=== PATIENT | male | born 1940 | race Caucasian/White ===

== ENCOUNTER 2018-03-26 21:38 | Emergency (ER) | payer OTHER, MEDICARE ==
[~2018-03-26] VITALS: Ht 170.2 cm; Wt 81.6 kg
[~2018-03-26 21:38] MED LIST: PERCOCET 5-3251 EACH PO; TYLENOL EXTRA500 M2 PO
[2018-03-26 22:10] LABS: ABSOLUTE BASOPHIL COUNT 0.1 /CUMM (0.0-0.2); ABSOLUTE EOSINOPHIL COUNT 0.3 /CUMM (0.0-0.7); ABSOLUTE GRANULOCYTE CT 4.4 /CUMM (1.4-6.5); ABSOLUTE MONOCYTE COUNT 1.1 /CUMM (0.10-0.60); EOSINOPHIL % 3.6 % (0-5); GRANULOCYTE % 49.3 % (42.2-75.2); HEMATOCRIT 38.5 % (42-52); MEAN CORPUSCULAR HGB 28.3 PG (27.0-31.0); MEAN CORPUSCULAR HGB CONC 32.8 G/DL (33.0-37.0); MEAN CORPUSCULAR VOLUME 86.1 FL (80.0-94.0); PLATELET COUNT 292 /CUMM (130-400); RBC DISTRIBUTION WIDTH 14.2 % (11.5-14.5); RED BLOOD CELL CT 4.47 /CUMM (4.70-6.10); WHITE BLOOD CELL COUNT 8.9 /CUMM (4.8-10.8)
--- NOTE | 2018-03-26 22:15 | ED DYSPNEA/ASTHMA COMPLAINT ---
History of Present Illness General Chief Complaint: Dyspnea (COPD, CHF, Other) Stated Complaint: DIFF BREATHING PER PT Source: patient, family Exam Limitations: no limitations Vital Signs & Intake/Output Vital Signs & Intake/Output Vital Signs Date Time Temp Pulse Resp B/P B/P Pulse O2 O2 Flow FiO2 Mean Ox Delivery Rate 03/26 2343 97.8 80 18 138/78 95 Room Air 03/26 2149 98.5 93 18 145/86 95 Room Air ED Intake and Output 03/27 0000 03/26 1200 Intake Total Output Total Balance Patient 180 lb Weight Weight Reported by Patient Measurement Method Allergies Coded Allergies: moxifloxacin (UNKNOWN 12/12/15) Uncoded Allergies: LOBSTER (UNKNOWN 03/26/18) Reconcile Medications Acetaminophen (Tylenol Extra Strength) 500 MG TABLET 1 TAB PO Q4-6 PRN PRN pain control available over the counter. take as directed as needed for pain control. Brompheniramine/Pseudoephed/Dm (Bromfed Dm Cough Syrup) 2 MG-30 MG-10 MG/5 ML SYRUP 5-10 ML PO Q4-6 PRN PRN cough Sodium Polystyrene Sulfonate 15 GRAM/60 ML ORAL.SUSP 30 GM PO ONCE hyperkalemia Triage Note: PT TO ER C/C INCREASED SOB AND COUGH "SINCE FEBRUARY". PT STATES HE HAS BEEN FOLLOWED BY DR. MERCER FOR A "BRONCHIAL PROBLEM", TAKING AMOXICILLIN FOR SAME. DRY COUGH NOTED. DENIES C/P. STATES IS HAVING DIFFICULTY SLEEPING X 4 DAYS. Triage Nurses Notes Reviewed? yes Onset: Gradual Duration: week(s): Timing: recent history Severity: moderate HPI: 77 oral male presents emergency department complaining of persistent cough and exertional dyspnea for the past several weeks. Patient states that he has had breathing issues which she is been seeing his primary care doctor for a long time. Patient has waxing and waning symptoms, his primary care doctor has been treating him with amoxicillin, he has had improvement in the past however symptoms have never totally cleared. Patient states he has a dry cough which is worse with laying flat and often keeps him up at night. Patient was prescribed amoxicillin 2 days ago for his cough. He states that this time the medication has not been helping at all. Patient states that he had a CAT scan with contrast dye of his chest about a week ago which showed lymphadenopathy. Patient has an appointment with IR for lymph node biopsy in two days. Patient denies chest pain, fevers, chills. (Libia Coughlin) Past History Travel History Traveled to [place] past 21 day No Medical History Any Pertinent Medical History? 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 No (Libia Coughlin) Review of Systems Review of Systems Constitutional: Reports: no symptoms. EENTM: Reports: no symptoms. Respiratory: Reports: see HPI. Cardiovascular: Reports: no symptoms. GI: Reports: no symptoms. Genitourinary: Reports: no symptoms. Musculoskeletal: Reports: no symptoms. Skin: Reports: no symptoms. Neurological/Psychological: Reports: no symptoms. Hematologic/Endocrine: Reports: no symptoms. Immunologic/Allergic: Reports: no symptoms. All Other Systems: Reviewed and Negative (Libia Coughlin) Physical Exam Physical Exam General Appearance: well developed/nourished, no apparent distress, alert, awake Head: atraumatic, normal appearance Eyes: Bilateral: normal appearance. Ears, Nose, Throat: hearing grossly normal Neck: normal inspection, supple, full range of motion, lymphadenopathy (R), lymphadenopathy (L) Respiratory: normal breath sounds, chest non-tender, no respiratory distress, lungs clear Cardiovascular: regular rate/rhythm Gastrointestinal: normal bowel sounds, soft, non-tender, no organomegaly Extremities: normal inspection, normal range of motion Neurologic/Psych: awake, alert, oriented x 3 Skin: intact, normal color, warm/dry Core Measures ACS in differential dx? No CVA/TIA Diagnosis No Sepsis Present: No Sepsis Focused Exam Completed? No (Libia Coughlin) Progress Differential Diagnosis: asthma, AMI, bronchitis, costochondritis, CHF, COPD, pericarditis, pulmonary embolism, pneumonia, unstable angina Plan of Care: Orders Procedure Date/time Status TROPONIN LEVEL 03/26 2149 Complete COMPREHENSIVE METABOLIC PANEL 03/26 2149 Complete CBC WITHOUT DIFFERENTIAL 03/26 2149 Complete EKG 03/26 2141 Active Laboratory Tests 03/26/18 2205: Anion Gap 10, Estimated GFR > 60, BUN/Creatinine Ratio 15.0, Glucose 91, Calcium 10.2, Total Bilirubin 0.3, AST 19, ALT 26, Alkaline Phosphatase 76, Troponin I < 0.01, Total Protein 7.2, Albumin 4.1, Globulin 3.1, Albumin/Globulin Ratio 1.3, CBC w Diff NO MAN DIFF REQ, RBC 4.47 L, MCV 86.1, MCH 28.3, MCHC 32.8 L, RDW 14.2, MPV 6.0 L, Gran % 49.3, Lymphocytes % 34.1, Monocytes % 12.0 H, Eosinophils % 3.6, Basophils % 1.0, Absolute Granulocytes 4.4, Absolute Lymphocytes 3.0, Absolute Monocytes 1.1 H, Absolute Eosinophils 0.3, Absolute Basophils 0.1 Patient declined chest x-ray given his recent CT scan of his chest last week. Symptoms are also chronic and he has had several chest x-rays in the past. EKG is in sinus rhythm without acute ischemic changes. Troponins and is negative. Labs are significant for mild hyperkalemia. No EKG changes related to hyperkalemia. Findings discussed with Dr. Bills. It was recommended the patient take Kayexalate here in the emergency department tonight however he declines, he states he wishes to go home and have a good night sleep. Patient states he will take Kayexalate at home tomorrow morning. Prescribe medication to help with his cough. The patient is in no acute distress, vital signs are stable, lung sounds are clear bilaterally. Patient has no chest pain. Suspicion for acute cardiac pathology based on this patient's presentation. The patient agrees with the plan of care. Initial ED EKG: sinus rhythm @93bpm, nonspecific ST changes (Anjana FELTON,Libia Martins) Departure Departure Disposition: HOME OR SELF CARE Condition: Stable Clinical Impression Primary Impression: Cough Secondary Impressions: Dyspnea Qualifiers: Dyspnea type: dyspnea on exertion Qualified Code: R06.09 - Other forms of dyspnea Hyperkalemia Referrals: Marci GAITAN,Matthias Hall (PCP/Family) Additional Instructions: Take Kayexalate for your hypertension. Your potassium level today was 5.5. Have your primary care doctor recheck your potassium level in about a week. You were given a list of foods that contain potassium to limit in your diet. Try Bromfed to help with her cough. Return with worsening symptoms or concerns. Please note that there might be incidental findings in your evaluation that are unrelated to the current emergency department visit. Please notify your primary care doctor about this emergency department visit in order to obtain and review all of the testing performed so that these incidental findings can be monitored as needed. If you had an x-ray performed, please understand that some fractures may not be seen on the initial set of x-rays. If your symptoms persist you might need a repeat set of x-rays to check for such a fracture. If you had a laceration evaluated, please understand that foreign bodies such as glass or wood may not be visible to the naked eye or on plain x-rays. If the wound becomes red, swollen, increasingly more painful or if there is any drainage from the wound, please have it reevaluated by a physician for the possibility of a retained foreign body. If you're unable to follow up as outlined in the discharge instructions please return to the emergency department. Thank you for choosing the [facility] Emergency Department for your care. It was a pleasure to serve you today. Departure Forms: Customer Survey General Discharge Information Prescriptions: Current Visit Scripts Sodium Polystyrene Sulfonate 30 GM PO ONCE #30 GM Brompheniramine/Pseudoephed/Dm (Bromfed Dm Cough Syrup) 5-10 ML PO Q4-6 PRN PRN cough #120 ML (Anjana FELTON,Libia Martins) PA/DIRECTOR REGULATORY COMPLIANCE Co-Sign Statement Statement: ED Attending supervision documentation- [x] I have reviewed the ED Record and agree with the PA's/DIRECTOR REGULATORY COMPLIANCE's documentation. (Negar GAITAN,Louie Oliver) Critical Care Note Critical Care Note Critical Care Time: non-applicable (Libia Coughlin)
[2018-03-26] MEDS ORDERED: SODIUM POL15 GM/601 PO (23:38)
[2018-03-26] MEDS ORDERED: BROMFED DM COU118 M1 PO (23:39)
[2018-03-26 23:43] VITALS: BP 138/78
== END 2018-03-26 23:48 ==
LOC: ERH 21:38
PROVIDERS: Physician Assistant
DX: R05 Cough (principal); R06.00 Dyspnea, unspecified; E87.5 Hyperkalemia
CPT/HCPCS: 93005; 93010

== ENCOUNTER 2018-05-25 22:52 | Inpatient (IN) | payer OTHER, MEDICARE ==
[~2018-05-25] VITALS: Ht 167.6 cm; Wt 78.1 kg
[~2018-05-25 22:52] MED LIST changes: +BROMFED DM COU118 M1 PO; +SODIUM POL15 GM/601 PO
[2018-05-25 23:49] LABS: ABSOLUTE BASOPHIL COUNT 0.1 /CUMM (0.0-0.2); ABSOLUTE EOSINOPHIL COUNT 0.1 /CUMM (0.0-0.7); ABSOLUTE GRANULOCYTE CT 5.7 /CUMM (1.4-6.5); ABSOLUTE LYMPH COUNT 1.6 /CUMM (1.2-3.4); EOSINOPHIL % 1.5 % (0-5); MEAN CORPUSCULAR HGB 27.5 PG (27.0-31.0); MEAN CORPUSCULAR HGB CONC 33.6 G/DL (33.0-37.0); MEAN CORPUSCULAR VOLUME 81.7 FL (80.0-94.0); MEAN PLATELET VOLUME 6.8 FL (7.4-10.4); PLATELET COUNT 237 /CUMM (130-400); RBC DISTRIBUTION WIDTH 15.9 % (11.5-14.5); RED BLOOD CELL CT 5.27 /CUMM (4.70-6.10); WHITE BLOOD CELL COUNT 8.5 /CUMM (4.8-10.8)
--- NOTE | 2018-05-26 00:16 | RADIOLOGY REPORT ---
EXAMINATION: XR PORTABLE CHEST CLINICAL INFORMATION: History of metastatic lung cancer, shortness of breath COMPARISON: 04/04/2018 TECHNIQUE: Portable frontal view of the chest was obtained. FINDINGS: Right IJ port catheter tip lies in the region of the distal SVC. Lung volumes are symmetric. No acute consolidation is identified to suggest pneumonia. Masslike density in the right upper lobe identified on recent PET/CT is not as well delineated radiographically. Linear atelectasis is present at the left lung base. No evidence of pneumothorax, significant pleural effusion, or overt pulmonary edema. The cardiomediastinal contour is unremarkable. No acute osseous findings are seen. IMPRESSION: No acute consolidation identified to suggest pneumonia. Right upper lobe mass on prior PET/CT is not as well delineated radiographically.
--- NOTE | 2018-05-26 00:30 | ED DYSPNEA/ASTHMA COMPLAINT ---
History of Present Illness General Chief Complaint: Dyspnea (COPD, CHF, Other) Stated Complaint: BIBA SOB Source: patient, old records Exam Limitations: no limitations Vital Signs & Intake/Output Vital Signs & Intake/Output Vital Signs Date Time Temp Pulse Resp B/P B/P Pulse O2 O2 Flow FiO2 Mean Ox Delivery Rate 05/26 0114 97.8 94 18 134/63 97 Nasal 3.0L Cannula 05/25 2303 97.6 101 20 138/78 96 Allergies Coded Allergies: moxifloxacin (UNKNOWN 12/12/15) shellfish derived (ANAPHYLAXIS 05/26/18) Uncoded Allergies: LOBSTER (UNKNOWN 03/26/18) Reconcile Medications Acetaminophen (Tylenol Extra Strength) 500 MG TABLET 1 TAB PO Q4-6 PRN PRN pain control available over the counter. take as directed as needed for pain control. Brompheniramine/Pseudoephed/Dm (Bromfed Dm Cough Syrup) 2 MG-30 MG-10 MG/5 ML SYRUP 5-10 ML PO Q4-6 PRN PRN cough Sodium Polystyrene Sulfonate 15 GRAM/60 ML ORAL.SUSP 30 GM PO ONCE hyperkalemia Triage Note: PT BIBA FROM HOME C/O SOB. PT WAS RECENTLY DIAGNOSED WITH STAGE 4 LUNG CA. PT HAD FIRST CHEMO TX YESTERDAY. PT C/O SOB THIS EVENING. PER EMS RA SPO2 WAS 94%. PT RECEIVED 2 DUO NEBS FROM EMS. RA SPO2 IMPROVED TO 98%. PT DENIES PAIN/DISCOMFORT. Triage Nurses Notes Reviewed? yes Onset: Last week Duration: week(s):, constant, continues in ED, getting worse Timing: recent history Severity: severe Activities at Onset: activity Prior Episodes/Possible Cause: occasional episodes Modifying Factors: Improves With: rest. Worsens With: movement. Associated Symptoms: cough, wheezing, weakness HPI: Several weeks prior to admission patient completed whole brain radiation for metastatic lung cancer to neck and brain. 2 weeks prior to admission he is had progressive increase in shortness of breath dyspnea on exertion limiting his activity to 3-4 steps requiring rest. He has started immunotherapy. He denies fever chills nausea vomiting diarrhea chest pain headache dysuria rash bleeding. Past History Travel History Traveled to [place] past 21 day No Medical History Any Pertinent Medical History? 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 No Review of Systems Review of Systems Constitutional: Reports: see HPI, weakness. EENTM: Reports: no symptoms. Respiratory: Reports: see HPI, cough, short of breath, wheezing. Denies: sputum production. Cardiovascular: Reports: no symptoms. GI: Reports: no symptoms. Genitourinary: Reports: no symptoms. Musculoskeletal: Reports: no symptoms. Skin: Reports: no symptoms. Neurological/Psychological: Reports: no symptoms. Hematologic/Endocrine: Reports: no symptoms. Immunologic/Allergic: Reports: no symptoms. All Other Systems: Reviewed and Negative Physical Exam Physical Exam General Appearance: well developed/nourished, alert, awake, moderate distress, severe distress Head: atraumatic, normal appearance Eyes: Bilateral: normal appearance, PERRL, EOMI. Ears, Nose, Throat: normal pharynx, normal ENT inspection, hearing grossly normal Neck: normal inspection, supple, full range of motion, no midline tenderness Respiratory: chest non-tender, decreased breath sounds, wheezing, respiratory distress Cardiovascular: regular rate/rhythm, normal peripheral pulses, tachycardia, norml femoral pulses equa Peripheral Pulses: 4+ carotid (R), 4+ carotid (L) Gastrointestinal: normal bowel sounds, soft, non-tender, no organomegaly Extremities: normal inspection, normal capillary refill, normal range of motion, no edema Neurologic/Psych: no motor/sensory deficits, awake, alert, oriented x 3, normal mood/affect, 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 No CVA/TIA Diagnosis No Sepsis Present: No Sepsis Focused Exam Completed? No Progress Differential Diagnosis: asthma, bronchitis, CHF, COPD, pneumonia Plan of Care: Orders Procedure Date/time Status Regular Diet 05/27 B Active OXYGEN SETUP (GEN) 05/26 49 Active Saline Lock 05/26 0049 Active Admit to inpatient 05/26 49 Active Vital Signs 05/26 49 Active Activity/Ambulation 05/26 49 Active Code Status 05/26 49 Active TROPONIN LEVEL 05/25 2318 Complete MAGNESIUM 05/25 2318 Complete COMPREHENSIVE METABOLIC PANEL 05/25 2318 Complete CBC WITHOUT DIFFERENTIAL 05/25 2318 Complete B-TYPE NATRIURETIC PEP (BNP) 05/25 2318 Complete EKG 05/25 2254 Active Laboratory Tests 05/25/18 2336: Anion Gap 12, Estimated GFR > 60, BUN/Creatinine Ratio 20.0, Glucose 101 H, Calcium 9.3, Magnesium 2.0, Total Bilirubin 0.6, AST 24, ALT 33, Alkaline Phosphatase 110, Troponin I < 0.01, Tra-C-Mlbwyplsiai Pept 76.5, Total Protein 6.5, Albumin 3.7, Globulin 2.8, Albumin/Globulin Ratio 1.3, CBC w Diff NO MAN DIFF REQ, RBC 5.27, MCV 81.7, MCH 27.5, MCHC 33.6, RDW 15.9 H, MPV 6.8 L, Gran % 67.0, Lymphocytes % 18.4 L, Monocytes % 12.1 H, Eosinophils % 1.5, Basophils % 1.0, Absolute Granulocytes 5.7, Absolute Lymphocytes 1.6, Absolute Monocytes 1.0 H, Absolute Eosinophils 0.1, Absolute Basophils 0.1 Diagnostic Imaging: Viewed by Me: Radiology Read. Discussed w/RAD: Radiology Read. CXR Impression: No acute consolidation identified to suggest pneumonia. Right upper lobe mass on prior PET/CT is not as well delineated radiographically. Initial ED EKG: normal axis, normal intervals, normal p-waves, normal QRS complex, rhythm (sinus tachycardia), no ST T wave changes Rhythm Strip: sinus tachycardia Departure Departure Time of Disposition: 208 Disposition: STILL A PATIENT Condition: Fair Clinical Impression Primary Impression: Dyspnea and respiratory abnormalities Secondary Impressions: Metastatic primary lung cancer Referrals: Marci GAITAN,Matthias Hall (PCP/Family) Departure Forms: Customer Survey General Discharge Information Admission Note Spoke With: Mauro Hart MD Documentation of Exam: Documentation of any treatments & extenuating circumstances including Concerns Regarding Discharge (functional status, medication knowledge or non-compliance, living conditions, etc.) that warrant an admission rather than observation: Supplemental oxygen beta agonist nebs oncology evaluation pulmonary evaluation medication adjustment physical therapy continuing care discharge planning Critical Care Note Critical Care Note Critical Care Time: non-applicable
--- NOTE | 2018-05-26 02:49 | History & Physical ---
Pepe Petersen MD 05/26/18 0249: General Information and HPI MD Statement: I have seen and personally examined MELVIN ACEVES and documented this H &P. The patient is a 77 year old M who presented with a patient stated chief complaint of [difficulty breathing]. 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 Patient reports that he recently completed 10 days of whole brain radiation therapy on May 05. States that after the radiation he started having symptoms which included shortness of breath, pain with swallowing, and anorexia. Patient reports that the shortness of breath has been worsening over the past 3 weeks and he is now having shortness of breath at rest and with minimal exertion. Reports that he cannot take more than 4 steps without getting short of breath. Patient reports a significant cough which is nonproductive. States that he can minimize the coughing if he lies on his left side. Reports that the cough is chronic and is what initially precipitated evaluation which led to his diagnosis of metastatic lung cancer. Patient denies any fever, chills, chest pain, palpitations, lightheadedness, dizziness, abdominal pain, nausea/vomiting, dysuria/hematuria. Patient reports that he is seen by Dr. Sandoval for radiation therapy management and Dr. Sarmiento for medical management. States that he received his first infusion of Keytruda on Tuesday, May 24. Patient reports that he is not currently on any home medications except for an albuterol inhaler which he states does not help improve his breathing as he is unable to take a deep breath. Patient was previously on Bromfed cough syrup however reports that while his cough subsided he had some urinary retention and stopped taking it. Allergies/Medications Allergies: Coded Allergies: moxifloxacin (UNKNOWN 12/12/15) shellfish derived (ANAPHYLAXIS 05/26/18) Uncoded Allergies: LOBSTER (UNKNOWN 03/26/18) Home Med list Acetaminophen (Tylenol Extra Strength) 500 MG TABLET 1 TAB PO Q4-6 PRN PRN pain control available over the counter. take as directed as needed for pain control. 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 Denies: chills, diaphoresis, fever, malaise. EENTM: Reports: visual changes. Cardiovascular: Reports: no symptoms. Respiratory: Reports: cough, short of breath. Denies: hemoptysis, orthopnea, sputum production. GI: Reports: no symptoms. Genitourinary: Reports: no symptoms. Musculoskeletal: Reports: no symptoms. Skin: Reports: no symptoms. Neurological/Psychological: Reports: anxiety. Hematologic/Endocrine: Reports: no symptoms. Immunologic/Allergic: Reports: see HPI. Exam & Diagnostic Data Last 24 Hrs of Vital Signs/I&O Vital Signs Date Time Temp Pulse Resp B/P B/P Pulse O2 O2 Flow FiO2 Mean Ox Delivery Rate 05/26 0114 97.8 94 18 134/63 97 Nasal 3.0L Cannula 05/25 2303 97.6 101 20 138/78 96 Physical Exam General Appearance Alert, Oriented X3, Cooperative, Mild Distress Skin No Rashes Skin Temp/Moisture Exam: Warm/Dry HEENT Atraumatic, PERRLA, EOMI, Mucous Membr. moist/pink Lymphatic large hard supraclavicular right sided lymph node palpable, right axillary LN palpable Cardiovascular Regular Rate, Normal S1, Normal S2 Lungs decreased breath sounds bilaterally with diffuse crackles Abdomen Normal Bowel Sounds, Soft, No Tenderness Neurological Normal Speech, Strength at 5/5 X4 Ext, Normal Tone, Sensation Intact, Cranial Nerves 3-12 NL Extremities No Clubbing, No Cyanosis, No Edema, Normal Pulses, No Tenderness/ Swelling Last 24 Hrs of Labs/Joo: Laboratory Tests 05/25/18 2336: Anion Gap 12, Estimated GFR > 60, BUN/Creatinine Ratio 20.0, Glucose 101 H, Calcium 9.3, Magnesium 2.0, Total Bilirubin 0.6, AST 24, ALT 33, Alkaline Phosphatase 110, Troponin I < 0.01, Llw-I-H[place]z Pept 76.5, Total Protein 6.5, Albumin 3.7, Globulin 2.8, Albumin/Globulin Ratio 1.3, CBC w Diff NO MAN DIFF REQ, RBC 5.27, MCV 81.7, MCH 27.5, MCHC 33.6, RDW 15.9 H, MPV 6.8 L, Gran % 67.0, Lymphocytes % 18.4 L, Monocytes % 12.1 H, Eosinophils % 1.5, Basophils % 1.0, Absolute Granulocytes 5.7, Absolute Lymphocytes 1.6, Absolute Monocytes 1.0 H, Absolute Eosinophils 0.1, Absolute Basophils 0.1 Diagnostic Data EKG Results Sinus Tachycardia with no signficant STT wave changes CXR Results No acute consolidation identified to suggest pneumonia. Right upper lobe mass on prior PET/CT is not as well delineated radiographically. 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 Patient remains afebrile with no white count. Physical exam significant for decreased breath sounds and crackles on exam. No wheezing was heard however patient had a nebulizer treatment prior to examination. Patient's labs are within normal limits. Progressive Dyspnea In the setting of metastatic lung cancer may be secondary to lymphangitic tumor spread, pneumonia is another possibility although he is afebrile with a normal white count the immunosuppressive therapy may be masking an infection. Chest x- ray shows no sign of pneumonia at this time. * Supplemental oxygen, wean off as tolerated * TRC, DuoNeb treatments as needed * Continue to monitor vitals * Patient may benefit from steroids however due to recent immunosuppressive therapy and as patient is stable at this time will defer pending-oncology input * Oncology consult placed with Dr. Sarmiento * Robitussin for cough PRN * Sputum culture if patient is able to provide * Will watch off antibiotics at this time * Pulmonology consult in AM * Consider CT Chest in AM for further evaluation * PT/OT for evaluation of weakness Radiation Induced Esophagitis * Swallow evaluation placed * PPI * Consider topical anesthetic like viscous lidocaine if patient reports odynophagia Code: Full Code DVT PPx: ALPS, lovenox SC Diet: Regular As Ranked By This Provider Problem List: 1. Dyspnea 2. Metastatic primary lung cancer Core Measures/Misc (05/22) Acute Coronary Syndrome ACS Diagnosis: No Congestive Heart Failure Congestive Heart Failure Diagnosis No Cerebrovascular Accident CVA/TIA Diagnosis: No VTE (View Protocol) VTE Risk Factors Age>40 No Mechanical VTE Prophylaxis d/t N/A MechProphylax Ordered No VTE Pharm Prophylaxis d/t NA PharmProphylax ordered Sepsis (View protocol) Sepsis Present: No If YES complete Sepsis Event Note If YES complete Sepsis Event Note Mauro Hart 05/26/18 0257: Core Measures/Misc (05/22) Sepsis (View protocol) If YES complete Sepsis Event Note If YES complete Sepsis Event Note Attending MD Review Statement Attending Statement Attending MD Statement: examined this patient, discuss w/resident/PA/ENERGY PROJECTS LEAD, agreed w/resident/PA/ENERGY PROJECTS LEAD Attending Assessment/Plan: Addendum by . Patient was seen and examined at bedside today (05/26/18 ) at 2:30 Am.. Reviewed the history physical done by the resident. Reviewed the past medical family, family, social history. ROS: 10 point system reviewed and negative except as described above. Additional details. Patient is a 77 years old male who was diagnosed with metastatic adenocarcinoma of the lung in February who has metastatic to the brain, cervical spine, lymph nodes of the neck, axillary lymph nodes, who received radiotherapy the last session was end of April, also received Keytruda 1 infusion last week he is here for evaluation of worsening shortness of breath. Patient has ongoing shortness of breath for a month slowly progressing, to the point that he could not even walk a few steps. Patient needed to take multiple breaks to even climb 13 steps at his home. And he was feeling more short of breath with sitting position. In the having significant cough as well. No fever, no chest pain. Patient had esophagitis from the radiotherapy, he could not eat or drink for the last 3 weeks. He started having some oral diet only for the last 2 days. Exam: Alert, awake, oriented 3. In mild respiratory distress, on nasal oxygen. There is a 4-5 cm hard lymph node in the right supraclavicular space, lymph node enlargement over is a cervical spine on the back, right axillary area lymph node enlargement-all of them are hard and nontender on exam. Lungs-poor air entry at the bases but otherwise normal exam, no wheezing, no crackles. Cardiac examination-normal. Abdominal examination is benign. No leg edema. Chest x-ray, labs, prior MRI brain and C-spine, PET scan were reviewed. Lung biopsy report was reviewed. Assessment and plan: #Increased shortness of breath in this patient with metastatic lung cancer-my differential include radiation pneumonitis versus lymphomatous spread of the tumor causing his symptoms. We will continue with the nebulizations, oxygen support. A trial of steroids can be tried. But given recent use of Keytruda and unclear etiology will wait until pulmonary and oncology evaluation. Get pulmonary, oncology consult(Dr.: Valdovinos is oncologist). Clinically he does not seem to be an pneumonia given lack of infiltrates on the chest x-ray, no fever, normal WBC, the later 2 can be normal in this patient with cancer and immunotherapy. But we will hold off on antibiotics. Can get CT with contrast in the morning if desired by pulmonology. #Metastatic adenocarcinoma, lung primary, with metastasis to brain, cervical spine, cervical lymphadenopathy, axillary lymphadenopathy. Patient received radiotherapy to the neck and brain. Also he was started on Keytruda last week. He got one infusion so far. #start subcu Lovenox for DVT prophylaxis. Agree with the rest of the plan as per resident's note. Dr.Ravinder Toya MD. Hospitalist. Pager: [phone], cell: [phone].
[2018-05-26 04:00] VITALS: BP 132/64
--- NOTE | 2018-05-26 07:32 | PN- Housestaff ---
Miguelina Cantrelli 05/26/18 0732: Subjective Follow-up For: Dysnea Radiation esophagitis History of metastatic lung cancer Subjective: Patient was seen and examined at bedside. He is still on 3 L Oxygen which he does not require at baseline. He does not have any active concerns at this time. Denies fever, chills, nausea, vomiting. Review of Systems Constitutional: Reports: see HPI. Objective Last 24 Hrs of Vital Signs/I&O Vital Signs Date Time Temp Pulse Resp B/P B/P Pulse O2 O2 Flow FiO2 Mean Ox Delivery Rate 05/26 1056 Nasal 2.0L Cannula 05/26 0800 Nasal 2.0L Cannula 05/26 0400 97.7 96 22 132/64 95 Nasal 3.0L Cannula 05/26 0340 94 Nasal 3.0L Cannula 05/26 0321 98.0 88 18 129/68 99 Nasal 3.0L Cannula 05/26 0315 99 Nasal 3.0L Cannula 05/26 0114 97.8 94 18 134/63 97 Nasal 3.0L Cannula 05/25 2303 97.6 101 20 138/78 96 Intake & Output 05/26 1600 05/26 0800 05/26 0000 Intake Total 960 465 Output Total 400 250 Balance 560 215 Intake, IV 600 225 Intake, Oral 360 240 Number 0 Bowel Movements Output, Urine 400 250 Patient 172 lb Weight Weight Bed scale Measurement Method Physical Exam General Appearance: Alert, Oriented X3, Cooperative, No Acute Distress Neck: Supple Cardiovascular: Regular Rate, Normal S1, Normal S2 Lungs: Clear to Auscultation, bilateral wheezing Abdomen: Normal Bowel Sounds, Soft, No Tenderness Assessment/Plan Assessment: Patient is a 77-year-old male with past medical history significant for metastatic lung cancer status post right axillary lymph node biopsy showing 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 Patient remains afebrile with no white count. Physical exam significant for decreased breath sounds and crackles on exam. No wheezing was heard however patient had a nebulizer treatment prior to examination. Patient's labs are within normal limits. IMPRESSION: 1. No CT evidence of pulmonary embolism. 2. A 3.0 cm maximum dimension solid-appearing, irregular mass is noted at the right lung apex anteromedially. Given the patient's history of metastatic lung cancer, the mass likely represents the index primary neoplasm. 3. Extensive mediastinal as well as bilateral hilar and bilateral axillary lymphadenopathy as well as a right supraclavicular solitary 4.4 cm mass, presumably represent metastatic lymphadenopathy. 4. Multifocal sclerotic lesions involving the thoracic spine (T7 through T11 vertebral bodies), highly suspicious for osseous metastases. VTE: Negative. Problems: 1. Progressive dyspnea 2. Radiation esophagitis 3. History of metastatic lung cancer Progressive Dyspnea -Supplemental oxygen, wean off as tolerated -TRC, DuoNeb treatments as needed -Oncology consult placed with Dr. Sarmiento. Will follow recommendations regarding following patients on steroids -Robitussin for cough PRN -Sputum culture if patient is able to provide -Will monitor off antibiotics at this time -Pulmonology consult placed. Will follow recommendations -CTA chest does not show any evidence of pneumonia or thromboembolism -PT/OT for evaluation of weakness 2. Radiation Induced Esophagitis -Swallow evaluation placed. Will follow recommendations -PPI -Consider topical anesthetic like viscous lidocaine if patient reports odynophagia Code: Full Code DVT PPx: ALPS, lovenox SC Diet: Regular Problem List: 1. Metastatic primary lung cancer 2. Dyspnea and respiratory abnormalities 3. Dyspnea 4. Cough 5. Cholelithiasis Pain Ratin Pain Location: none Pain Goal: Remain pain free Pain Plan: none Tomorrow's Labs & Rationales: cbc and bep ArdenTrudy 05/26/18 1136: Attending MD Review Statement Attending Statement Attending MD Statement: examined this patient, discuss w/resident/PA/RETAIL INVENTORY CONTROL CLERK, agreed w/resident/PA/RETAIL INVENTORY CONTROL CLERK, discussed with family, reviewed EMR data (avail), discussed with nursing, discussed with case mgmt, reviewed images, amended to note Attending Assessment/Plan: Metastatic adenocarcinoma, lung primary, with metastasis to brain, cervical spine, cervical lymphadenopathy, axillary lymphadenopathy. Patient received radiotherapy to the neck and brain. Also he was started on Keytruda last week. Patient presneted to [facility] ER for increasing dyspnea for few days. Overnight no new complaints. He is on oxygen supplementation. Port-cath +. ASSESSMENT AND PLAN Patient with Increased shortness of breath with metastatic lung cancer possible differentials include radiation pneumonitis versus lymphomatous spread of the tumor causing his symptoms. We will continue with the nebulizations, oxygen support. Pulmoanry and oncology consulted. CTA chest ordered. Monitor off abx for now. If spikes fever consider broad specrum coverage. subcu Lovenox for DVT prophylaxis. Pateint requiring more than usual oxygen supplementation and would need to assess home oxygen at discharge.
--- NOTE | 2018-05-26 08:11 | Cons- Oncology ---
General Information and HPI Consulting Request Date of Consult: 05/26/18 Requested By: Mauro Hart MD History of Present Illness: 77-year-old man with known metastatic non-small cell lung carcinoma( adenocarcinoma) status post recent radiation of brain metastases on May 24 begun on Keytruda now admitted to the hospital with progressive shortness of breath. Patient denies chest pain hemoptysis or productive sputum. Patient denies fever chills. Patient does not believe infusion of Keytruda worsened his breathing. Patient was recently diagnosed with adenocarcinoma of lung by left axillary lymph node biopsy. The tumor expressed PD-L1. Allergies/Medications Allergies: Coded Allergies: moxifloxacin (UNKNOWN 12/12/15) shellfish derived (ANAPHYLAXIS 05/26/18) Uncoded Allergies: LOBSTER (UNKNOWN 03/26/18) Home Med List: Acetaminophen (Tylenol Extra Strength) 500 MG TABLET 1 TAB PO Q4-6 PRN PRN pain control available over the counter. take as directed as needed for pain control. Brompheniramine/Pseudoephed/Dm (Bromfed Dm Cough Syrup) 2 MG-30 MG-10 MG/5 ML SYRUP 5-10 ML PO Q4-6 PRN PRN cough Sodium Polystyrene Sulfonate 15 GRAM/60 ML ORAL.SUSP 30 GM PO ONCE hyperkalemia Current Medications: Current Medications Sig/Carina Start time Last Medication Dose Route Stop Time Status Admin Acetaminophen 650 MG Q6P PRN 05/26 300 AC PO Acetaminophen 1,000 MG Q6P PRN 05/26 300 AC IV Acetaminophen 0 .STK-MED ONE 05/25 2348 DC IV Albuterol Sulfate 3 ML Q6 PRN 05/26 300 AC INH Dextrose/Sodium 1,000 ML .[id number] 05/26 300 AC 05/26 Chloride IV 0409 Enoxaparin Sodium 40 MG DAILY 05/26 900 AC SC Guaifenesin/Codeine 10 ML Q6P PRN 05/26 030 AC Phosphate PO Ipratropium [place] 2.5 ML Q6-PRN PRN 05/26 030 AC INH Omeprazole 40 MG DAILY AC 05/26 0700 AC 05/26 PO 0609 Polyethylene Glycol 17 GM AT BEDTIME PRN 05/26 030 AC PO Senna/Docusate Sodium 1 TAB AT BEDTIME PRN 05/26 0300 AC PO Sodium Chloride 1,000 ML BOLUS ONE 05/26 0300 DC 05/26 IV 05/26 0359 0200 Trimethobenzamide HCl 200 MG ONCE ONE 05/26 0630 DC IM 05/26 0631 Review of Systems Review of Systems: Patient denies headaches or dizziness. The patient denies nausea vomiting diarrhea change in bowel habits. Patient denies dysuria or hematuria. 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 Home Services at Home: None Smoking Status: Former Smoker ETOH Use: denies use Illicit Drug Use: denies illicit drug use Exam & Diagnostic Data Vital Signs and I&O Vital Signs Date Time Temp Pulse Resp B/P B/P Pulse O2 O2 Flow FiO2 Mean Ox Delivery Rate 05/26 0400 97.7 96 22 132/64 95 Nasal 3.0L Cannula 05/26 0340 94 Nasal 3.0L Cannula 05/26 0321 98.0 88 18 129/68 99 Nasal 3.0L Cannula 05/26 0315 99 Nasal 3.0L Cannula 05/26 0114 97.8 94 18 134/63 97 Nasal 3.0L Cannula 05/25 2303 97.6 101 20 138/78 96 Intake & Output 05/26 1600 05/26 0800 05/26 0000 Intake Total Output Total Balance Patient 172 lb Weight Weight Bed scale Measurement Method Gen.: in NAD, wearing oxygen ENT: Sclera anicteric Chest: Normal respiratory effort, decreased breath sounds, few rhonchi/wheezes Cor: RRR, no extra sounds Abdomen: Soft, bowel sounds present, no tenderness, no rebound Extremities: Without clubbing, cyanosis, or asymmetric edema Neurology: Alert and oriented 3, no gross deficit Last 48 Hours of Lab Results: Laboratory Tests 05/26 05/25 0600 2336 Chemistry Sodium (137 - 145 mmol/L) Pending 137 Potassium (3.5 - 5.1 mmol/L) Pending 3.8 Chloride (98 - 107 mmol/L) Pending 101 Carbon Dioxide (22 - 30 mmol/L) Pending 24 Anion Gap (5 - 16) Pending 12 BUN (9 - 20 mg/dL) Pending 16 Creatinine (0.7 - 1.2 mg/dL) Pending 0.8 Estimated GFR (>60 ml/min) > 60 BUN/Creatinine Ratio (7 - 25 %) Pending 20.0 Glucose (65 - 99 mg/dL) 101 H Calcium (8.4 - 10.2 mg/dL) 9.3 Magnesium (1.6 - 2.3 mg/dL) 2.0 Total Bilirubin (0.2 - 1.3 mg/dL) 0.6 AST (17 - 59 U/L) 24 ALT (21 - 72 U/L) 33 Alkaline Phosphatase (< 127 U/L) 110 Troponin I (<0.11 ng/ml) < 0.01 Vuv-Y-Thiruwprcuz Pept (<125 pg/mL) 76.5 Total Protein (6.3 - 8.2 g/dL) 6.5 Albumin (3.5 - 5.0 g/dL) 3.7 Globulin (1.9 - 4.2 gm/dL) 2.8 Albumin/Globulin Ratio (1.1 - 2.2 %) 1.3 Hematology CBC w Diff Pending NO MAN DIFF REQ WBC (4.8 - 10.8 /CUMM) Pending 8.5 RBC (4.70 - 6.10 /CUMM) Pending 5.27 Hgb (14.0 - 18.0 G/DL) Pending 14.5 Hct (42 - 52 %) Pending 43.0 MCV (80.0 - 94.0 FL) Pending 81.7 MCH (27.0 - 31.0 PG) Pending 27.5 MCHC (33.0 - 37.0 G/DL) Pending 33.6 RDW (11.5 - 14.5 %) Pending 15.9 H Plt Count (130 - 400 /CUMM) Pending 237 MPV (7.4 - 10.4 FL) Pending 6.8 L Gran % (42.2 - 75.2 %) 67.0 Lymphocytes % (20.5 - 51.1 %) 18.4 L Monocytes % (1.7 - 9.3 %) 12.1 H Eosinophils % (0 - 5 %) 1.5 Basophils % (0.0 - 2.0 %) 1.0 Absolute Granulocytes (1.4 - 6.5 /CUMM) 5.7 Absolute Lymphocytes (1.2 - 3.4 /CUMM) 1.6 Absolute Monocytes (0.10 - 0.60 /CUMM) 1.0 H Absolute Eosinophils (0.0 - 0.7 /CUMM) 0.1 Absolute Basophils (0.0 - 0.2 /CUMM) 0.1 Chest x-ray-no changes Assessment/Plan Assessment: 1. respiratory distress-patient now presents with ongoing dyspnea not worsened by his recent infusion of Keytruda. The patient in the past had been on corticosteroids. If this represents worsening of presumed underlying COPD, use of systemic corticosteroids would be relatively contraindicated.Keytruda will not be effective in the setting of systemic corticosteroids. Recommend- Pulmonic consultation has been called Strongly consider CTA of chest 2. Stage IV lung cancer 3. I had a discussion with the patient about advanced directives. At this point he is unsure as to his long-term wishes Please call over the weekend if issues develop will resume care on Tuesday Recommendations: .. Consult Acknowledgment - Thank you for your consult request.
--- NOTE | 2018-05-26 09:47 | Cons- Pulmonary ---
General Information and HPI Consulting Request Date of Consult: 05/26/18 Requested By: Dr. Hart Reason for Consult: Shortness of breath Source of Information: patient, family, old records Exam Limitations: no limitations History of Present Illness: The patient is a 77-year-old male with a past medical history significant for non-small cell lung cancer (adenocarcinoma), stage IV with brain metastases. The patient is status post whole brain radiation and has been started on q. [place]. He is being followed as an outpatient by oncology and radiation oncology. He has not seen a clinical biostatistician in the past. The patient reported that after receiving radiation, his symptoms of shortness of breath have worsened. He also has experienced dysphagia, and anorexia. He has been trying to eat and drink but has been having difficulty with this. He denies aspiration. The patient's dyspnea has progressed to him feeling short of breath at rest. He also has a cough which is intermittently productive of clear to yellow sputum. There is no report of hemoptysis. His cough is chronic. The patient denies any fever, chills, chest pressure, palpitations, lightheadedness, nausea or vomiting. In the ED, the patient was noted to be hypoxic, and was placed on supplemental oxygen. He was admitted to the general medical floor for further evaluation and treatment. Allergies/Medications Allergies: Coded Allergies: moxifloxacin (UNKNOWN 12/12/15) shellfish derived (ANAPHYLAXIS 05/26/18) Uncoded Allergies: LOBSTER (UNKNOWN 03/26/18) Home Med List: Acetaminophen (Tylenol Extra Strength) 500 MG TABLET 1 TAB PO Q4-6 PRN PRN pain control available over the counter. take as directed as needed for pain control. Brompheniramine/Pseudoephed/Dm (Bromfed Dm Cough Syrup) 2 MG-30 MG-10 MG/5 ML SYRUP 5-10 ML PO Q4-6 PRN PRN cough Sodium Polystyrene Sulfonate 15 GRAM/60 ML ORAL.SUSP 30 GM PO ONCE hyperkalemia Review of Systems Review of Systems All Other Systems: Reviewed and Negative Past History Travel History Traveled to [place] past 21 day No Medical History Blood Transfusion Hx: Yes Neurological: NONE EENT: NON Cardiovascular: NONE Respiratory: NONE Gastrointestinal: NONE Hepatic: NONE Renal: NONE ?BPH Musculoskeletal: NONE Psychiatric: NONE Endocrine: NONE Blood Disorders: NONE Cancer(s): LUNG STAGE 4 METS TO BRAIN AND 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 Home Services at Home: None Smoking Status: Former Smoker ETOH Use: denies use Illicit Drug Use: denies illicit drug use Exam & Diagnostic Data Last 24 Hrs of Vital Signs/I&O Vital Signs Date Time Temp Pulse Resp B/P B/P Pulse O2 O2 Flow FiO2 Mean Ox Delivery Rate 05/26 0400 97.7 96 22 132/64 95 Nasal 3.0L Cannula 05/26 0340 94 Nasal 3.0L Cannula 05/26 0321 98.0 88 18 129/68 99 Nasal 3.0L Cannula 05/26 0315 99 Nasal 3.0L Cannula 05/26 0114 97.8 94 18 134/63 97 Nasal 3.0L Cannula 05/25 2303 97.6 101 20 138/78 96 Intake & Output 05/26 1600 05/26 0800 05/26 0000 Intake Total 465 Output Total 250 Balance 215 Intake, IV 225 Intake, Oral 240 Output, Urine 250 Patient 172 lb Weight Weight Bed scale Measurement Method Physical Exam General Appearance: alert, awake, comfortable Head: atraumatic Eyes: Bilateral: PERRL. Neck: supple Respiratory: chest non-tender, wheezing Cardiovascular: regular rate/rhythm Gastrointestinal: normal bowel sounds, soft, non-tender Extremities: no edema Skin: intact, normal color, warm/dry Last 48 Hrs of Labs/Joo: Laboratory Tests 05/26/18 0600: Sodium Pending, Potassium Pending, Chloride Pending, Carbon Dioxide Pending, Anion Gap Pending, BUN Pending, Creatinine Pending, BUN/Creatinine Ratio Pending , CBC w Diff Pending, WBC Pending, RBC Pending, Hgb Pending, Hct Pending, MCV Pending, MCH Pending, MCHC Pending, RDW Pending, Plt Count Pending, MPV Pending 05/25/18 2336: Anion Gap 12, Estimated GFR > 60, BUN/Creatinine Ratio 20.0, Glucose 101 H, Calcium 9.3, Magnesium 2.0, Total Bilirubin 0.6, AST 24, ALT 33, Alkaline Phosphatase 110, Troponin I < 0.01, Vdw-S-Ycjqdxhszeg Pept 76.5, Total Protein 6.5, Albumin 3.7, Globulin 2.8, Albumin/Globulin Ratio 1.3, CBC w Diff NO MAN DIFF REQ, RBC 5.27, MCV 81.7, MCH 27.5, MCHC 33.6, RDW 15.9 H, MPV 6.8 L, Gran % 67.0, Lymphocytes % 18.4 L, Monocytes % 12.1 H, Eosinophils % 1.5, Basophils % 1.0, Absolute Granulocytes 5.7, Absolute Lymphocytes 1.6, Absolute Monocytes 1.0 H, Absolute Eosinophils 0.1, Absolute Basophils 0.1 Diagnostic Data CXR Results No acute consolidation identified to suggest pneumonia. Right upper lobe mass on prior PET/CT is not as well delineated radiographically. Assessment/Plan Impression/Plan: 1. Metastatic non-small cell lung cancer (adenocarcinoma), stage IV, status post radiation of brain metastases, now on Keytruda. 2. Probable underlying obstructive lung disease. 3. Rule out pulmonary embolism. Recommendations: * Check a CT angiogram to rule out pulmonary embolism. * TRC consult. * Duo nebs every 4 hours while awake. * Please check a bedside spirometry. * Start incentive spirometry. * Oxygen to maintain saturations greater than 92%. * Check an ambulatory oxygen saturation when able. * Consider echocardiogram. * Continue Robitussin for cough. * Check sputum for culture. * Monitor off antibiotics. * Follow-up swallowing evaluation. * Agree with PPIs. * DVT prophylaxis at all times. * Thank you, will follow along with you and provide further recommendations as necessary. Consult Acknowledgment - Thank you for your consult request.
--- NOTE | 2018-05-26 12:15 | CT SCAN REPORT ---
EXAMINATION: CT ANGIOGRAM CHEST WITH AND WITHOUT CONTRAST (CT PULMONARY ANGIOGRAM FOR PE) CLINICAL INFORMATION: 77-year-old male with metastatic lung cancer, shortness of breath. Suspect pulmonary embolism. COMPARISON: Chest radiograph done on 05/25/2018. TECHNIQUE: Prior to contrast administration, noncontrast localization images were obtained. Subsequently, multidetector volumetric imaging was performed from the thoracic inlet to below the diaphragms following the administration of 60 mL Optiray 320 intravenous contrast. No contrast reaction reported. Sagittal, coronal, and MIP oblique sagittal reformatted images were obtained on the CT workstation, uploaded to PACS, and reviewed. DLP: 461.79 mGy-cm FINDINGS: QUALITY OF STUDY/CONTRAST BOLUS: Satisfactory. PULMONARY ARTERIES: No central or segmental pulmonary emboli. THORACIC AORTA: No aneurysm or dissection. LUNGS: Irregular, solid mass is identified at the right upper lobe of the lung anteromedially measuring 3.0 x 2.3 x 1.3 cm, most consistent with primary lung neoplasm in this patient with metastatic lung cancer. There is biapical emphysematous disease present. Linear pleural parenchymal opacities are noted at both lung bases and around the lingular segment, most consistent with hypoventilatory, atelectatic changes. Otherwise, both lung hubbard are clear. The tracheobronchial tree appears patent. PLEURA/PERICARDIUM: Trace amount of left-sided pleural effusion is noted. Trace amount of pericardial effusion is also noted with the maximum thickness of the fluid measuring approximately 0.7 cm. MEDIASTINUM: Asymmetric right supraclavicular soft tissue mass is noted, measuring 4.4 cm at its maximum anteroposterior dimension, most consistent with large lymphadenopathy. There are multiple right paratracheal, prevascular, bilateral hilar, subcarinal, lobulated soft tissue masses identified, most consistent with presumed metastatic lymphadenopathy. No evidence of septal bowing or right heart strain. CHEST WALL/AXILLAE: Multiple bilateral axillary masses are noted (right greater than left). The dominant mass seen within the visualized part of the left axilla measures 2.3 cm at its maximum short axis dimension and 1.5 cm on the right side, consistent with presumed metastatic lymphadenopathy. A right subclavian Port-A-Cath is present, the visualized part of the port appears intact. The tip of the port is seen at the cavoatrial junction. OSSEOUS STRUCTURES: Multifocal sclerotic lesions are identified at the T7 through T11 vertebral bodies, given the patient's known metastatic lung cancer, highly suspicious for osseous metastases. UPPER ABDOMEN: The gallbladder is surgically absent. No reflux of contrast into the hepatic veins to suggest elevated right heart pressures. No adrenal mass. IMPRESSION: 1. No CT evidence of pulmonary embolism. 2. A 3.0 cm maximum dimension solid-appearing, irregular mass is noted at the right lung apex anteromedially. Given the patient's history of metastatic lung cancer, the mass likely represents the index primary neoplasm. 3. Extensive mediastinal as well as bilateral hilar and bilateral axillary lymphadenopathy as well as a right supraclavicular solitary 4.4 cm mass, presumably represent metastatic lymphadenopathy. 4. Multifocal sclerotic lesions involving the thoracic spine (T7 through T11 vertebral bodies), highly suspicious for osseous metastases. VTE: Negative.
[2018-05-26 12:55] LABS: ABSOLUTE BASOPHIL COUNT 0.1 /CUMM (0.0-0.2); ABSOLUTE EOSINOPHIL COUNT 0.1 /CUMM (0.0-0.7); ABSOLUTE GRANULOCYTE CT 5.2 /CUMM (1.4-6.5); ABSOLUTE MONOCYTE COUNT 0.9 /CUMM (0.10-0.60); BASOPHIL % 0.8 % (0.0-2.0); EOSINOPHIL % 1.9 % (0-5); GRANULOCYTE % 71.9 % (42.2-75.2); HEMATOCRIT 39.1 % (42-52); MEAN CORPUSCULAR HGB 27.8 PG (27.0-31.0); MEAN CORPUSCULAR HGB CONC 33.8 G/DL (33.0-37.0); MEAN CORPUSCULAR VOLUME 82.1 FL (80.0-94.0); MEAN PLATELET VOLUME 7.7 FL (7.4-10.4); PLATELET COUNT 179 /CUMM (130-400); RBC DISTRIBUTION WIDTH 16.2 % (11.5-14.5); RED BLOOD CELL CT 4.76 /CUMM (4.70-6.10); WHITE BLOOD CELL COUNT 7.3 /CUMM (4.8-10.8)
[2018-05-26 16:10] VITALS: BP 120/60
[2018-05-26 21:52] VITALS: BP 132/84
[2018-05-27 06:20] VITALS: BP 120/64
[2018-05-27 08:40] LABS: ABSOLUTE BASOPHIL COUNT 0 /CUMM (0.0-0.2); ABSOLUTE EOSINOPHIL COUNT 0.2 /CUMM (0.0-0.7); ABSOLUTE GRANULOCYTE CT 4.7 /CUMM (1.4-6.5); ABSOLUTE MONOCYTE COUNT 0.9 /CUMM (0.10-0.60); BASOPHIL % 0.7 % (0.0-2.0); EOSINOPHIL % 3.4 % (0-5); GRANULOCYTE % 68.2 % (42.2-75.2); HEMATOCRIT 40.5 % (42-52); MEAN CORPUSCULAR HGB 27.1 PG (27.0-31.0); MEAN CORPUSCULAR VOLUME 81.9 FL (80.0-94.0); MEAN PLATELET VOLUME 7.5 FL (7.4-10.4); PLATELET COUNT 193 /CUMM (130-400); RBC DISTRIBUTION WIDTH 15.8 % (11.5-14.5); RED BLOOD CELL CT 4.94 /CUMM (4.70-6.10); WHITE BLOOD CELL COUNT 6.9 /CUMM (4.8-10.8)
--- NOTE | 2018-05-27 08:48 | PN- Pulmonary ---
Subjective HPI/Critical Care Issues: The patient reports that his lips are swollen. The patient feels that this may be a result of the nebulizer treatments. He continues to have shortness of breath with exertion but feels better overall. His cough is improving as well. He finally slept a few hours. Objective Current Medications: Current Medications Sig/Carina Start time Last Medication Dose Route Stop Time Status Admin Acetaminophen 650 MG Q6P PRN 05/26 0300 AC PO Acetaminophen 1,000 MG Q6P PRN 05/26 0300 AC IV Albuterol Sulfate 3 ML EVERY 4 HRS/AWAKE 05/26 1200 AC 05/26 INH 2046 Albuterol Sulfate 3 ML Q6 PRN 05/26 0300 AC INH Benzonatate 100 MG TID 05/26 2251 AC 05/27 PO 0835 Dextrose/Sodium 1,000 ML .[id number] 05/26 030 DC 05/26 Chloride IV 0409 Enoxaparin Sodium 40 MG DAILY 05/26 09 SC Guaifenesin/Codeine 10 ML Q6P PRN 05/26 0300 AC 05/26 Phosphate PO 2142 Ipratropium Corinne 2.5 ML EVERY 4 HRS/AWAKE 05/26 1200 AC 05/26 INH 2046 Ipratropium Corinne 2.5 ML Q6-PRN PRN 05/26 0300 AC INH Omeprazole 40 MG DAILY AC 05/26 0700 AC 05/26 PO 0609 Ondansetron HCl 4 MG Q6P PRN 05/26 0830 AC IV Patient Medication 1 ED ONE ONE 05/26 1845 OR Teaching ED 05/26 1846 Polyethylene Glycol 17 GM AT BEDTIME PRN 05/26 0300 AC PO Senna/Docusate Sodium 1 TAB AT BEDTIME PRN 05/26 0300 AC PO Vital Signs & I&O Last 24 Hrs of Vitals and I&O: Vital Signs Date Time Temp Pulse Resp B/P B/P Pulse O2 O2 Flow FiO2 Mean Ox Delivery Rate 05/27 06 98.2 90 20 120/64 92 Nasal Cannula 05/27 0000 Nasal 2.0L Cannula 05/26 2152 98.3 93 20 132/84 95 Nasal 2.0L Cannula 05/26 1612 93 Nasal 2.0L Cannula 05/26 161 98.4 95 24 120/60 95 05/26 1056 Nasal 2.0L Cannula Intake & Output 05/27 1600 05/27 0800 05/27 0000 Intake Total 240 860 Output Total 150 450 Balance 90 410 Intake, Oral 240 860 Output, Urine 150 450 Exam General Appearance: no apparent distress, alert, awake, anxious, comfortable Head: atraumatic Neck: supple Respiratory: quiet respiration, wheezing Cardiovascular: regular rate/rhythm Abdomen: normal bowel sounds, soft, non-tender Extremities: no edema Results Last 24 Hrs of Lab Results: Laboratory Tests 05/27/18 0600: Sodium Pending, Potassium Pending, Chloride Pending, Carbon Dioxide Pending, Anion Gap Pending, BUN Pending, Creatinine Pending, BUN/Creatinine Ratio Pending , CBC w Diff Pending, WBC Pending, RBC Pending, Hgb Pending, Hct Pending, MCV Pending, MCH Pending, MCHC Pending, RDW Pending, Plt Count Pending, MPV Pending Diagnostic Data CT Scan Findings: 1. No CT evidence of pulmonary embolism. 2. A 3.0 cm maximum dimension solid-appearing, irregular mass is noted at the right lung apex anteromedially. Given the patient's history of metastatic lung cancer, the mass likely represents the index primary neoplasm. 3. Extensive mediastinal as well as bilateral hilar and bilateral axillary lymphadenopathy as well as a right supraclavicular solitary 4.4 cm mass, presumably represent metastatic lymphadenopathy. 4. Multifocal sclerotic lesions involving the thoracic spine (T7 through T11 vertebral bodies), highly suspicious for osseous metastases. VTE: Negative. Impression/Plan Impression/Plan Impression/Plan: 1. Shortness of breath secondary to COPD, deconditioning and significant tumor burden - lymphangitic spread of tumor? Not obvious on CT however may be a factor. 2. Chronic cough secondary to ongoing respiratory issues. 3. Nonsmall cell lung cancer, stage IV, with brain mets (undergoing XRT) and on Keytruda. 4. Probable COPD. Recommendations: * Nebs changed to albuterol olnly (allergic reaction to atrovent?). * Monitor for allergic reaction. * Benadryl for lip swelling/allergic reaction as needed. * Oxygen to maintain saturations greater than 92%. * Continue Robitussin for cough. * Check sputum for culture. * Monitor off antibiotics. * Follow-up swallowing evaluation. * Agree with PPIs. * DVT prophylaxis at all times.
--- NOTE | 2018-05-27 09:38 | PN- Housestaff ---
Franco Middleton 05/27/18 0938: Subjective Follow-up For: Radiation-induced esophagitis Shortness of breath History of metastatic lung cancer Subjective: Patient seen and examined at bedside. He was complaining of rash and hives in his lower extremity. He was also complaining of lower lip swelling. He denies fever, chills, chest pain, abdominal pain, diarrhea, constipation, burning micturition Review of Systems Constitutional: Reports: see HPI. Objective Last 24 Hrs of Vital Signs/I&O Vital Signs Date Time Temp Pulse Resp B/P B/P Pulse O2 O2 Flow FiO2 Mean Ox Delivery Rate 05/27 2206 98.4 96 20 120/70 93 Nasal 1.0L Cannula 05/27 1750 94 Nasal 1.5L Cannula 05/27 1600 Nasal Cannula 05/27 1539 98.4 98 22 118/70 95 05/27 0850 92 Nasal 2.0L Cannula 05/27 0800 Nasal 2.0L Cannula 05/27 0620 98.2 90 20 120/64 92 Nasal Cannula 05/27 0000 Nasal 2.0L Cannula Intake & Output 05/27 1600 05/27 0800 05/27 0000 Intake Total 1000 240 860 Output Total 150 450 Balance 1000 90 410 Intake, Oral 1000 240 860 Output, Urine 150 450 Patient 172 lb Weight Physical Exam General Appearance: Alert, Oriented X3, Cooperative, No Acute Distress Cardiovascular: Normal S1, Normal S2 Lungs: Clear to Auscultation, Normal Air Movement Abdomen: Normal Bowel Sounds, Soft, No Tenderness, No Hepatospenomegaly, No Masses Extremities: No Clubbing, No Cyanosis, No Edema, Normal Pulses, No Tenderness/ Swelling Assessment/Plan Assessment: Patient is a 77-year-old male with past medical history significant for metastatic lung cancer status post right axillary lymph node biopsy showing 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 Patient remains afebrile with no white count. Physical exam significant for decreased breath sounds and crackles on exam. No wheezing was heard however patient had a nebulizer treatment prior to examination. Patient's labs are within normal limits. Problem list: Progressive dyspnea Radiation induced esophagitis History of metastatic lung cancer Progressive Dyspnea : -We will follow oncology recommendation -He is on steroid -TRC nebulization -Oxygen supplement -No antibiotic 2. Radiation Induced Esophagitis -Swallow evaluation placed. Will follow recommendations -PPI -Consider topical anesthetic like viscous lidocaine if patient reports odynophagia Code: Full Code DVT PPx: ALPS, lovenox SC Diet: Regular Problem List: 1. Cough 2. Dyspnea 3. Metastatic primary lung cancer Pain Ratin Pain Location: No pain Pain Goal: Remain pain free Pain Plan: Pain management pathway Tomorrow's Labs & Rationales: NURIS Garner MD,Deisy 05/27/18 1041: Attending MD Review Statement Attending Statement Attending MD Statement: examined this patient, discuss w/resident/PA/DATA ENTRY COORDINATOR, agreed w/resident/PA/DATA ENTRY COORDINATOR, reviewed EMR data (avail), discussed with nursing, reviewed images, amended to note Attending Assessment/Plan: Patient seen and examined. Resting. Not in any acute distress. This morning developed a pruritic rash on his lower extremities. He reports smaller similar rash on his face as well. Denies similar reaction in the past. Medications reviewed this morning. No obvious etiology to the rash. Denies shortness of breath at rest. Reports being able to ambulate around the unit. Has adequate entry bilaterally with no added sounds. CTA chronicity reviewed. Recommendations: -Continue bronchodilator therapy with albuterol room. Atrovent may be inciting medication -Administer Benadryl for his pruritus. -Wean off oxygen supplementation as tolerated.
[2018-05-27 15:39] VITALS: BP 118/70
--- NOTE | 2018-05-27 17:48 | ECHOCARDIOGRAM REPORT ---
MELVIN ACEVES Age: 77 : 1940 Gender: M Exam Date: 05/27/2018 11:12 Exam Location: [facility] Ht (in): 66 Wt (lb): 172 BSA: 1.92 BP: 132 / 64 Ordering Physician: Janneth Mahoney MD Referring Physician: Janneth Mahoney MD Technologist: Yi Sherman [facility] Room Number: 230-01 Indications: sob Rhythm: Sinus Technical Quality: Fair FINDINGS Left Ventricle Normal global left ventricular size, wall thickness, systolic function with no obvious regional wall motion abnormalities. Left ventricular ejection fraction is estimated at >65 %. Abnormal relaxation filling pattern of the left ventricle for age (stage 1 diastolic dysfunction). Right Ventricle The right ventricle is normal in size and function. Right Atrium The right atrium is normal in size. Left Atrium The left atrium is normal in size. The interatrial septum is intact. Mitral Valve Mild thickening/calcification of the mitral valve leaflets. Moderate mitral annular calcification. Trace mitral regurgitation. Aortic Valve Diffuse thickening (sclerosis) of the aortic valve cusps without reduced excursion. No aortic regurgitation. No aortic stenosis. Tricuspid Valve The tricuspid valve is normal in structure and function. There is trace tricuspid regurgitation. Pulmonary artery systolic pressure is normal. Pulmonic Valve Structurally normal pulmonic valve. There is no pulmonic regurgitation. Pericardium Normal pericardium without effusion. No pleural effusion. Great Vessels Normal aortic root dimension. The aortic arch and great vessels are not well seen. CONCLUSIONS Normal global left ventricular size, wall thickness, systolic function with no obvious regional wall motion abnormalities. Abnormal relaxation filling pattern of the left ventricle for age (stage 1 diastolic dysfunction). The left atrium is normal in size. Mild thickening/calcification of the mitral valve leaflets. Moderate mitral annular calcification. Trace mitral regurgitation. Diffuse thickening (sclerosis) of the aortic valve cusps without reduced excursion. No aortic regurgitation. No aortic stenosis. Pulmonary artery systolic pressure is normal. The aortic arch and great vessels are not well seen. Rayshawn Benton M.D. (Electronically Signed) Final Date: 27 May 2018 17:44 MEASUREMENTS (Male / Female) Normal Values 2D ECHO LV Diastolic Diameter PLAX 3.1 cm 4.2 - 5.9 / 3.9 - 5.3 cm LV Systolic Diameter PLAX 1.8 cm 2.1 - 4.0 cm LV Fractional Shortening PLAX 39.7 % 25 - 46 % LV Ejection Fraction 2D Teich 71.8 % IVS Diastolic Thickness 1.0 cm LVPW Diastolic Thickness 0.7 cm LV Relative Wall Thickness 0.6 LVOT Diameter 2.0 cm Aortic Root Diameter 2.8 cm LA Systolic Diameter LX 2.5 cm 3.0 - 4.0 / 2.7 - 3.8 cm LA Volume 36.0 cm 18 - 58 / 22 - 52 cm DOPPLER AI Peak Velocity 189.5 cm/s AI Peak Gradient 14.4 mmHg LVOT Peak Velocity 153.0 cm/s LVOT Peak Gradient 9.4 mmHg LVOT Mean Velocity 109.0 cm/s LVOT Mean Gradient 6.0 mmHg LVOT Velocity Time Integral 30.1 cm LVOT Stroke Volume 94.6 cm Mitral E Point Velocity 75.3 cm/s Mitral A Point Velocity 136.0 cm/s Mitral E to A Ratio 0.6 MV Deceleration Time 123.0 ms TV Peak Velocity 243.0 cm/s PV Peak Velocity 81.4 cm/s PV Peak Gradient 2.7 mmHg LV E' Lateral Velocity 5.9 cm/s Mitral E to LV E' Lateral Ratio 12.9 LV E' Septal Velocity 3.9 cm/s Mitral E to LV E' Septal Ratio 19.3
[2018-05-27 22:06] VITALS: BP 120/70
[2018-05-28 06:20] VITALS: BP 138/82
--- NOTE | 2018-05-28 08:13 | PN- Housestaff ---
Franco Middleton 05/28/18 0812: Subjective Follow-up For: Radiation-induced esophagitis Shortness of breath Subjective: Patient seen and examined at bedside. he is complaining that I cannot take a deep breath. He denies fever, chills, pain, abdominal pain, diarrhea, constipation, burning micturition Review of Systems Constitutional: Reports: see HPI. Objective Last 24 Hrs of Vital Signs/I&O Vital Signs Date Time Temp Pulse Resp B/P B/P Pulse O2 O2 Flow FiO2 Mean Ox Delivery Rate 05/28 1449 97.6 91 20 120/70 94 05/28 0951 93 Nasal 1.0L Cannula 05/28 0800 Nasal 2.0L Cannula 05/28 0620 98.0 90 20 138/82 92 Nasal Cannula 05/28 0000 93 Nasal 3.0L Cannula 05/27 2206 98.4 96 20 120/70 93 Nasal 1.0L Cannula 05/27 1750 94 Nasal 1.5L Cannula 05/27 1600 Nasal Cannula 05/27 1539 98.4 98 22 118/70 95 Intake & Output 05/28 1600 05/28 0800 05/28 0000 Intake Total 1000 180 240 Output Total 150 300 50 Balance 850 -120 190 Intake, Oral 1000 180 240 Number 1 Bowel Movements Output, Urine 150 300 50 Physical Exam General Appearance: Alert, Oriented X3, Cooperative, No Acute Distress, Mild Distress Cardiovascular: Normal S1, Normal S2 Lungs: Clear to Auscultation, Normal Air Movement Abdomen: Normal Bowel Sounds, Soft, No Tenderness, No Hepatospenomegaly Extremities: No Clubbing, Normal Pulses Assessment/Plan Assessment: Patient is a 77-year-old male with past medical history significant for metastatic lung cancer status post right axillary lymph node biopsy showing 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 Patient remains afebrile with no white count. Physical exam significant for decreased breath sounds and crackles on exam. No wheezing was heard however patient had a nebulizer treatment prior to examination. Patient's labs are within normal limits. Problem list: Progressive dyspnea Radiation induced esophagitis History of metastatic lung cancer Progressive Dyspnea : -We will follow oncology recommendation -He is on steroid -TRC nebulization -Oxygen supplement today oxygen wean from tolerated 1 L saturations 94% -No antibiotic 2. Radiation Induced Esophagitis -Swallow evaluation placed. Will follow recommendations -PPI -Consider topical anesthetic like viscous lidocaine if patient reports odynophagia -Expected discharge in the next 24-48 hours Code: Full Code DVT PPx: ALPS, lovenox SC Diet: Regular Problem List: 1. Cough 2. Metastatic primary lung cancer Pain Ratin Pain Location: No pain Pain Goal: Remain pain free Pain Plan: Pain management pathway Tomorrow's Labs & Rationales: NO LABS Deisy Garner MD 05/28/18 1138: Attending MD Review Statement Attending Statement Attending MD Statement: examined this patient, discuss w/resident/PA/RESPIRATORY EQUIPMENT ASSISTANT, agreed w/resident/PA/RESPIRATORY EQUIPMENT ASSISTANT, reviewed EMR data (avail), discussed with nursing, discussed with case mgmt, amended to note Attending Assessment/Plan: Patient seen and examined. Resting comfortably not in any acute distress. No issues overnight. No new complaints this morning. He reports that the hives on his lower extremities I improving. They are not as pruritic as they were yesterday. Reports feeling less short of breath this morning. On examination he is not in any respiratory distress. He is maintaining saturation above 90% on 1 L of oxygen. He has adequate entry bilaterally with no added sounds. Heart sounds are regular. No peripheral edema. Recommendations: -Continue bronchodilator therapy with albuterol alone. -Wean off oxygen supplementation as tolerated. -Anticipate discharge in the next 24 hours once cleared by his senior strategy manager service with outpatient follow-up.
--- NOTE | 2018-05-28 14:34 | PN- Pulmonary ---
Subjective HPI/Critical Care Issues: The patient is awake and alert. He feels fatigued today. He continues to have shortness of breath with exertion. He has reported a rash and hives over his lower extremity but his lip swelling has improved. Objective Current Medications: Current Medications Sig/Carina Start time Last Medication Dose Route Stop Time Status Admin Acetaminophen 650 MG Q6P PRN 05/26 0300 AC PO Acetaminophen 1,000 MG Q6P PRN 05/26 0300 AC IV Albuterol Sulfate 3 ML EVERY 4 HRS/AWAKE 05/26 1200 AC 05/28 INH 1339 Albuterol Sulfate 3 ML Q6 PRN 05/26 0300 AC INH Benzonatate 100 MG TID 05/26 2251 AC 05/27 PO 0835 Diphenhydramine HCl 12.5 MG ONCE ONE 05/27 2345 DC 05/28 PO 05/27 2346 0029 Enoxaparin Sodium 40 MG DAILY 05/26 09 AC SC Guaifenesin/Codeine 10 ML Q6P PRN 05/26 0300 AC 05/26 Phosphate PO 2142 Ipratropium [place] 2.5 ML Q6-PRN PRN 05/26 0300 AC INH Omeprazole 40 MG DAILY AC 05/26 0700 AC 05/26 PO 0609 Ondansetron HCl 4 MG Q6P PRN 05/26 0830 AC IV Polyethylene Glycol 17 GM AT BEDTIME PRN 05/26 0300 AC PO Senna/Docusate Sodium 1 TAB AT BEDTIME PRN 05/26 030 AC PO Vital Signs & I&O Last 24 Hrs of Vitals and I&O: Vital Signs Date Time Temp Pulse Resp B/P B/P Pulse O2 O2 Flow FiO2 Mean Ox Delivery Rate 05/28 0951 93 Nasal 1.0L Cannula 05/28 0800 Nasal 2.0L Cannula 05/28 0620 98.0 90 20 138/82 92 Nasal Cannula 05/28 0000 93 Nasal 3.0L Cannula 05/27 2206 98.4 96 20 120/70 93 Nasal 1.0L Cannula 05/27 1750 94 Nasal 1.5L Cannula 05/27 1600 Nasal Cannula 05/27 1539 98.4 98 22 118/70 95 Intake & Output 05/28 1600 05/28 0800 05/28 0000 Intake Total 180 240 Output Total 300 50 Balance -120 190 Intake, Oral 180 240 Output, Urine 300 50 Physical Exam General Appearance: alert, awake, comfortable Head: atraumatic Eyes: Bilateral: PERRL. Neck: supple Respiratory: chest non-tender, wheezing Cardiovascular: regular rate/rhythm Gastrointestinal: normal bowel sounds, soft, non-tender Extremities: no edema Skin: intact, normal color, warm/dry Results Last 24 Hrs of Lab Results: No labs today. Impression/Plan Impression/Plan Impression/Plan: 1. Metastatic non-small cell lung cancer (adenocarcinoma), stage IV, status post radiation of brain metastases, now on Keytruda. 2. Probable underlying obstructive lung disease. 3. Lip swelling and pruritic rash, Atrovent may be inciting agent. Recommendations: * Continue albuterol nebulizer treatments. * Monitor for allergic reaction. * Benadryl for lip swelling/allergic reaction/rash as needed. * Oxygen to maintain saturations greater than 92%. * Continue Robitussin for cough. * Monitor off antibiotics. * Encourage oral intake. * Continue PPIs. * DVT prophylaxis at all times. * Await further oncology input. * Continue all supportive care.
[2018-05-28 14:49] VITALS: BP 120/70
[2018-05-28 22:33] VITALS: BP 100/68
[2018-05-29 06:10] VITALS: BP 136/80
--- NOTE | 2018-05-29 07:36 | PN- Housestaff ---
See Addendum Subjective Follow-up For: Dysnea Radiation esophagitis History of metastatic lung cancer Subjective: Patient was seen and examined at bedside. He was comfortably lying in the bed. He did look exhausted. The patient had intermittent hives over the weekend, which was a possible reaction to Atrovent. He has been ambulating well. He reports problems with swallowing. Also complains of decreased appetite. Review of Systems Constitutional: Reports: see HPI. Objective Last 24 Hrs of Vital Signs/I&O Vital Signs Date Time Temp Pulse Resp B/P B/P Pulse O2 O2 Flow FiO2 Mean Ox Delivery Rate 05/29 0849 93 Nasal 1.0L Cannula 05/29 0610 98.8 90 20 136/80 93 Nasal Cannula 05/29 0000 Nasal 1.0L Cannula 05/28 2233 98.7 100 16 100/68 95 Nasal 1.0L Cannula 05/28 1907 92 Nasal 1.0L Cannula 05/28 1449 97.6 91 20 120/70 94 Intake & Output 05/29 1600 05/29 0800 05/29 0000 Intake Total 1000 500 Output Total 400 200 Balance 600 300 Intake, IV 800 100 Intake, Oral 200 400 Number 0 Bowel Movements Output, Urine 400 200 Physical Exam General Appearance: Alert, Oriented X3, Cooperative, No Acute Distress Skin: No Rashes Neck: Supple Cardiovascular: Regular Rate, Normal S1, Normal S2 Lungs: Clear to Auscultation Abdomen: Normal Bowel Sounds, Soft, No Tenderness Extremities: No Edema, Normal Pulses Assessment/Plan Assessment: Patient is a 77-year-old male with past medical history significant for metastatic lung cancer status post right axillary lymph node biopsy showing 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 Patient remains afebrile with no white count. Physical exam significant for decreased breath sounds and crackles on exam. No wheezing was heard however patient had a nebulizer treatment prior to examination. Patient's labs are within normal limits. IMPRESSION: 1. No CT evidence of pulmonary embolism. 2. A 3.0 cm maximum dimension solid-appearing, irregular mass is noted at the right lung apex anteromedially. Given the patient's history of metastatic lung cancer, the mass likely represents the index primary neoplasm. 3. Extensive mediastinal as well as bilateral hilar and bilateral axillary lymphadenopathy as well as a right supraclavicular solitary 4.4 cm mass, presumably represent metastatic lymphadenopathy. 4. Multifocal sclerotic lesions involving the thoracic spine (T7 through T11 vertebral bodies), highly suspicious for osseous metastases. VTE: Negative. Problems: 1. Progressive dyspnea 2. Radiation esophagitis 3. History of metastatic lung cancer Progressive Dyspnea due to underlying obstructive lung disease - Patient is currently on 1 L Oxygen , will check walking pulse ox for the need of home oxygen -TRC, DuoNeb treatments as needed while in the hospital. The patient cannot be given steroids given immunosuppressive chemotherapy. He would need Nebulizer at home as supportive care for his probable underlying obstructive lung disease. Patient has been doing well on Albuterol while in the hospital. -Oncology consut appreciated. The patient would continue with Chemotherapy outpatient. -Robitussin for cough PRN -Continue to follow off antibiotics -Pulmonology inout appreciated. Will follow up recommendations -CTA chest does not show any evidence of pneumonia or thromboembolism 2. Radiation Induced Esophagitis -Swallow evaluation placed. Will follow recommendations -PPI -Consider topical anesthetic like viscous lidocaine if patient reports odynophagia 3. Hives -The patient developed intermittent hives probably secondary to Atrovent which was managed with Atrovent. He was given Benadryl and is stable at this time. Code: Full Code DVT PPx: ALPS, lovenox SC Diet: Regular Problem List: 1. Dysphagia 2. Metastatic primary lung cancer 3. Dyspnea and respiratory abnormalities Pain Ratin Pain Location: none Pain Goal: Remain pain free Pain Plan: none Tomorrow's Labs & Rationales: none
--- NOTE | 2018-05-29 07:40 | PN- Oncology ---
Subjective Subjective: His breathing has improved. He reports intermittent hives. He has no fever or chills. He has no nausea or vomiting. He has been up and ambulating. He does get short of breath with ambulation but has improved since admission. He does have some problem with swallowing at times. His appetite is decreased. He denies any new pain. Review of Systems Constitutional: Reports: weakness. Denies: chills, fever. Cardiovascular: Denies: chest pain. Respiratory: Reports: cough, short of breath. Gastrointestinal: Denies: abdominal pain. Musculoskeletal: Reports: back pain. Skin: Reports: rash (hives). Neurological/Psychological: Denies: anxiety, cognitive dysfunction, confusion. Hematologic/Endocrine: Denies: bruising, bleeding. All Other Systems: Reviewed and Negative Objective Vital Signs and I&Os Vital Signs Date Time Temp Pulse Resp B/P B/P Pulse O2 O2 Flow FiO2 Mean Ox Delivery Rate 05/29 0610 98.8 90 20 136/80 93 Nasal Cannula 05/29 0000 Nasal 1.0L Cannula 05/28 2233 98.7 100 16 100/68 95 Nasal 1.0L Cannula 05/28 1907 92 Nasal 1.0L Cannula 05/28 1449 97.6 91 20 120/70 94 05/28 0951 93 Nasal 1.0L Cannula 05/28 0800 Nasal 2.0L Cannula Intake & Output 05/29 0800 05/29 0000 05/28 1600 05/28 0800 05/28 0000 05/27 1600 Intake Total 0082 372 4118 412 528 1748 Output Total 200 200 150 300 50 Balance 800 300 850 -973 386 5604 Intake, IV 800 100 Intake, Oral 553 273 1986 995 433 7478 Number 1 Bowel Movements Output, Urine 200 200 150 300 50 Patient 78.075 kg Weight Physical Exam General Appearance: no apparent distress, alert, awake, comfortable Head: atraumatic, normal appearance Ears, Nose, Throat: normal pharynx Respiratory: chest non-tender, no respiratory distress, quiet respiration, decreased breath sounds, on 1L NC Cardiovascular: tachycardia Abdomen: normal bowel sounds, soft, non-tender Back: normal inspection Extremities: no edema Neurologic/Psychiatric: awake, alert, oriented x 3 Skin: normal color, warm/dry Current Medications: Current Medications Sig/Carina Start time Last Medication Dose Route Stop Time Status Admin Acetaminophen 650 MG Q6P PRN 05/26 0300 AC PO Acetaminophen 1,000 MG Q6P PRN 05/26 0300 AC IV Albuterol Sulfate 3 ML BID 05/28 2100 AC INH Albuterol Sulfate 3 ML EVERY 4 HRS/AWAKE 05/26 1200 DC 05/28 INH 1339 Albuterol Sulfate 3 ML Q6 PRN 05/26 0300 AC INH Benzonatate 100 MG TID 05/26 2251 AC 05/27 PO 0835 Enoxaparin Sodium 40 MG DAILY 05/26 0900 AC SC Guaifenesin/Codeine 10 ML Q6P PRN 05/26 0300 AC 05/26 Phosphate PO 2142 Ipratropium [place] 2.5 ML Q6-PRN PRN 05/26 0300 AC INH Omeprazole 40 MG DAILY AC 05/26 0700 AC 05/26 PO 0609 Ondansetron HCl 4 MG Q6P PRN 05/26 0830 AC IV Polyethylene Glycol 17 GM AT BEDTIME PRN 05/26 0300 AC PO Senna/Docusate Sodium 1 TAB AT BEDTIME PRN 05/26 030 AC PO Sodium Chloride 1,000 ML Q10H 05/28 2145 AC 05/28 IV 05/29 0744 2207 Results Last 24 Hours of Lab Results: Laboratory Tests 05/29 0520 Chemistry Sodium Pending Potassium Pending Chloride Pending Carbon Dioxide Pending Anion Gap Pending BUN Pending Creatinine Pending BUN/Creatinine Ratio Pending Recent Imaging Studies: CTA Chest 05/26/2018: PULMONARY ARTERIES: No central or segmental pulmonary emboli. THORACIC AORTA: No aneurysm or dissection. LUNGS: Irregular, solid mass is identified at the right upper lobe of the lung anteromedially measuring 3.0 x 2.3 x 1.3 cm, most consistent with primary lung neoplasm in this patient with metastatic lung cancer. There is biapical emphysematous disease present. Linear pleural parenchymal opacities are noted at both lung bases and around the lingular segment, most consistent with hypoventilatory, atelectatic changes. Otherwise, both lung hubbard are clear. The tracheobronchial tree appears patent. PLEURA/PERICARDIUM: Trace amount of left-sided pleural effusion is noted. Trace amount of pericardial effusion is also noted with the maximum thickness of the fluid measuring approximately 0.7 cm. MEDIASTINUM: Asymmetric right supraclavicular soft tissue mass is noted, measuring 4.4 cm at its maximum anteroposterior dimension, most consistent with large lymphadenopathy. There are multiple right paratracheal, prevascular, bilateral hilar, subcarinal, lobulated soft tissue masses identified, most consistent with presumed metastatic lymphadenopathy. No evidence of septal bowing or right heart strain. CHEST WALL/AXILLAE: Multiple bilateral axillary masses are noted (right greater than left). The dominant mass seen within the visualized part of the left axilla measures 2.3 cm at its maximum short axis dimension and 1.5 cm on the right side , consistent with presumed metastatic lymphadenopathy. A right subclavian Port-A -Cath is present, the visualized part of the port appears intact. The tip of the port is seen at the cavoatrial junction. OSSEOUS STRUCTURES: Multifocal sclerotic lesions are identified at the T7 through T11 vertebral bodies, given the patient's known metastatic lung cancer, highly suspicious for osseous metastases. UPPER ABDOMEN: The gallbladder is surgically absent. No reflux of contrast into the hepatic veins to suggest elevated right heart pressures. No adrenal mass. IMPRESSION: 1. No CT evidence of pulmonary embolism. 2. A 3.0 cm maximum dimension solid-appearing, irregular mass is noted at the right lung apex anteromedially. Given the patient's history of metastatic lung cancer, the mass likely represents the index primary neoplasm. 3. Extensive mediastinal as well as bilateral hilar and bilateral axillary lymphadenopathy as well as a right supraclavicular solitary 4.4 cm mass, presumably represent metastatic lymphadenopathy. 4. Multifocal sclerotic lesions involving the thoracic spine (T7 through T11 vertebral bodies), highly suspicious for osseous metastases. VTE: Negative. Assessment/Plan Assessment/Recommendations: Mr. Juárez is a 77-year-old male with stage IV NSCLC, PDL1+, brain metastases status post whole brain radiation who presented to the hospital with increasing dyspnea. He has clinically improved. CTA chest did not demonstrate any pneumonia or PE. He does have some emphysema. He has some atelectasis. He also has diffuse adenopathy. His dysphagia and dyspnea are likely related to his adenopathy and emphysema. His respiratory treatment is helping. He has hives of unclear etiology. This is unlikely to be related to his pembrolizumab. Steroid should be limited in this patient and use only when absolutely needed. Steroid will suppress his immune system and his NSCLC treatment. Progressive dyspnea: -pulmonary is following -continue respiratory management -may need home nebulizer -check oxygen saturation with ambulation Dysphagia: -swallow evaluation Stage IV NSCLC: -limit steroid treatment -follow up as outpatient to continue with pembrolizumab Please call [phone] with any questions or concerns. Problem List: 1. Dyspnea and respiratory abnormalities 2. Metastatic primary lung cancer 3. Dyspnea 4. Dysphagia
--- NOTE | 2018-05-29 10:05 | Patient Discharge Instructions ---
Discharge Instructions General Discharge Information You were seen/treated for: Shortness of breath Radiation esophagitis Special Instructions: 1. Please inform your PCP about your admisision at [facility]. 2. Please follow up with your oncologist as an outpatient. 3. Please take the new medications according to instructions. Diet Continue normal diet: Yes Activity Full Activity/No Limits: Yes Acute Coronary Syndrome Inclusion Criteria At DC or during hospital stay patient has or had the following: ACS DIAGNOSIS No Discharge Core Measures Meds if any: Prescribed or Continued at Discharge Meds if any: NOT Prescribed or Continued at Discharge Congestive Heart Failure Inclusion Criteria At DC or during hospital stay patient has or had the following: CHF DIAGNOSIS No Discharge Core Measures Meds if any: Prescribed or Continued at Discharge Meds if any: NOT Prescribed or Continued at Discharge Cerebrovascular accident Inclusion Criteria At DC or during hospital stay patient has or had the following: CVA/TIA Diagnosis No Discharge Core Measures Meds if any: Prescribed or Continued at Discharge Meds if any: NOT Prescribed or Continued at Discharge Venous thromboembolism Inclusion Criteria VTE Diagnosis No VTE Type NONE VTE Confirmed by (Test) NONE Discharge Core Measures - Per Current guidelines, there needs to be overlap - treatment for the first 5 days of Warfarin therapy. - If discharged on Warfarin prior to 5 days of - overlap therapy, the patient will need to be - assessed for post discharge needs including - *Post discharge parental anticoagulation - *Warfarin and/or parental anticoagulation education - *Follow up date to check INR post discharge At least 5 days overlap therapy as Inpatient No Meds if any: Prescribed or Continued at Discharge Note: Overlap Therapy is Warfarin and Anticoagulant Meds if any: NOT Prescribed or Continued at Discharge
[2018-05-29] MEDS ORDERED: ALBUTEROL0.63 MG/1 INH/SOL ×2 (11:11→11:34)
--- NOTE | 2018-05-29 11:44 | PN- Student ---
Subjective Subjective: This morning the patient was sitting up comfortably on the edge of his bed, accompanied by his . He expresses his SOB and cough have improved since his arrival, although still persist. His hives have improved since the weekend and the swelling in his lips have gone down. He wishes to become more mobile in hopes of returning home. He states he feels the oxygen is keeping him hindering his ability to ambulate around the room. His expresses concern in his return to home as their bedroom is located on the second floor and she is unsure if they can manage the stairs with his condition. They would like further follow -up from PT. The patient also expresses some concern with his swallowing. He has had decreased appetite, although he says he is able to swallow without issues what he is eating; rice, green beans. The patient and his are motivated for his return to home. ROS: General: denies fever, chills, diaphoresis HEENT: denies headache, visual changes or diplopia Respiratory: reports improved SOB with ambulation and notices a wheeze with expiration Cardiovascular: denies chest pain or palpitations Gastrointestinal: denies abdominal pain or changes in bowel Genitourinary: denies any urinary symptoms, frequency, dysuria Neurologic: denies numbess or tingling Objective Objective: Physical Exam: Vitals: T:98.8, HR: 90, RR: 20, BP: 136/80, O2: 93% on nasal cannula General: patient was pleasant, sitting up in bed, in no acute distress Head: no trauma HEENT: PERRL, EOMI, trachea midline, hearing grossly in tact Respiratory: no respiratory distress, lung sounds auscultated bilaterally, expiratory wheeze noted Cardiovascular: regular rate and rhythm Abdominal: no distension, tenderness or guarding Peripheral extremities: normal capillary refill, no edema Results Results: Laboratory Tests 05/29/18 0520: Anion Gap 8, Estimated GFR > 60, BUN/Creatinine Ratio 15.0 05/27/18 0600: Anion Gap 9, Estimated GFR > 60, BUN/Creatinine Ratio 11.3, CBC w Diff NO MAN DIFF REQ, RBC 4.94, MCV 81.9, MCH 27.1, MCHC 33.0, RDW 15.8 H, MPV 7.5, Gran % 68.2, Lymphocytes % 14.7 L, Monocytes % 13.0 H, Eosinophils % 3.4, Basophils % 0.7, Absolute Granulocytes 4.7, Absolute Lymphocytes 1.0 L, Absolute Monocytes 0.9 H, Absolute Eosinophils 0.2, Absolute Basophils 0 Assessment/Plan Assessment: This patient is a 77 yo M with a history significant for non-small cell lung cancer stage IV with metastasis to the brain, recently completing whole brain radiation on April, was BIBA for progressive worsening of SOB dyspnea on exertion and at rest. Recently, he was diagnosed with left lung adenocarcinoma via left axillary lymph node biopsy, and received his first round of Keytruda immunotherapy on . Chest xray on admission was not suggestive of pneumonia, displayed right upper quadrant mass. CTA displayed multiple lesions; in the R lung apex, R supraclavicular lymphadenopathy, and multifocal scleritic lesions along the thoracic spine. The echocardiogram performed was unremarkable. Plan: Problem List: Progressive SOB and dyspnea on exertion: His symtpoms have improved and been managed with albuterol, as he appeared to have an allergic reaction to atrovent over the weekend. - monitor O2 with ambulation - PT with stairs - discharge with home nebulizer Radiation induced esophagitis: - continue with PPI - awaiting swallow evaluation Hives reaction: - symptoms have been managed with benadryl - monitor for progression
--- NOTE | 2018-05-30 23:13 | Discharge Summary ---
Visit Information Visit Dates Admission Date: 05/26/18 Discharge Date: 05/29/18 Hospital Course Course Attending Physician: Trudy Her MD Primary Care Physician: Matthias Covarrubias MD Hospital Course: Mr. 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 Patient remained afebrile with no white count throughout the course of his hospital stay. Physical exam was significant for decreased breath sounds and wheezing on exam. Patient's labs remained within normal limits. CTA IMPRESSION: 1. No CT evidence of pulmonary embolism. 2. A 3.0 cm maximum dimension solid-appearing, irregular mass is noted at the right lung apex anteromedially. Given the patient's history of metastatic lung cancer, the mass likely represents the index primary neoplasm. 3. Extensive mediastinal as well as bilateral hilar and bilateral axillary lymphadenopathy as well as a right supraclavicular solitary 4.4 cm mass, presumably represent metastatic lymphadenopathy. 4. Multifocal sclerotic lesions involving the thoracic spine (T7 through T11 vertebral bodies), highly suspicious for osseous metastases. VTE: Negative. 1. Progressive Dyspnea due to underlying obstructive lung disease Patient was placed on 3.5L Oxygen and was weaned to 1 L Oxygen. His ambulatory Pulse ox readings at the time of discharge was 92% on room air. TRC, DuoNeb treatments as needed were given while the patient was in the hospital. No steroids were given given the patient was on immunosuppressive chemotherapy. He was given Nebulizer with Albuterol at home as supportive care for his probable underlying obstructive lung disease. Patient developed intermittent hives while on treatment in the hospital which had resolved by the time of discharge. Patient was followed off antibiotics given no clinical or radiological evidence of Pneumonia. 2. Radiation Induced Esophagitis Patient reported difficulty swallowing due to radiation induced esophagitis and was given PPI to relieve his symotoms. Allergies: Coded Allergies: moxifloxacin (UNKNOWN 12/12/15) shellfish derived (ANAPHYLAXIS 05/26/18) Uncoded Allergies: LOBSTER (UNKNOWN 03/26/18) Significant Procedures: Echocardiogram CONCLUSIONS Normal global left ventricular size, wall thickness, systolic function with no obvious regional wall motion abnormalities. Abnormal relaxation filling pattern of the left ventricle for age (stage 1 diastolic dysfunction). The left atrium is normal in size. Mild thickening/calcification of the mitral valve leaflets. Moderate mitral annular calcification. Trace mitral regurgitation. Diffuse thickening (sclerosis) of the aortic valve cusps without reduced excursion. No aortic regurgitation. No aortic stenosis. Pulmonary artery systolic pressure is normal. The aortic arch and great vessels are not well seen. Disposition Summary Disposition Principal Diagnosis: Metastatic lung cancer with tumor burden and poor lung reserves Probable radiation pneumonitis Obstructive Lung Disease Additional Diagnosis: Radiation Induced Esophagitis Hives Discharge Disposition: home or self care Discharge Instructions General Discharge Information Code Status: Full Code Patient's Diet: Regular Diet Patient's Activity: As tolerated Follow-Up Instructions/Appts: The patient would follow up with his oncologist for continuing outpatient chemotherapy. He would also follow up his radiation oncologist for characterization and management of sclerotic changes in the thoracic vertebrae. He would follow up with his PCP within a week of his discharge. Medications at Discharge Discharge Medications: Continue taking these medications: Acetaminophen (Tylenol Extra Strength) 500 MG TABLET 1 Tablet ORAL EVERY 4-6 HOURS NEEDED as needed for pain control Days = 10 Instructions: available over the counter. take as directed as needed for pain control. Comments: NOT GIVEN IN HOSPITAL Sodium Polystyrene Sulfonate (Sodium Polystyrene Sulfonate) 15 GRAM/60 ML ORAL.SUSP 30 Gram ORAL GIVE ONCE Qty = 30 Comments: NOT GIVEN IN HOSPITAL Brompheniramine/Pseudoephed/Dm (Bromfed Dm Cough Syrup) 2 MG-30 MG-10 MG/5 ML SYRUP 5-10 Milliliters ORAL EVERY 4-6 HOURS NEEDED as needed for cough Qty = 120 Comments: NOT GIVEN IN HOSPITAL Start taking the following new medications: Albuterol Sulfate (Albuterol Sulfate) 0.63 MG/3 ML VIAL.NEB 1 Vial Inhale Solution 4 TIMES A DAY as needed for obstructive lung disease Qty = 120 No Refills Instructions: . Comments: Last Taken: 05/29/18 Time: 6119 Copies To: Marci GAITAN,Matthias Hall Attending MD Review Statement Documenting Attending: Trudy Her MD Other Findings: He has poor lung reserves from his underlying cancer and possible obstructive lung disease. Continue supportive care. Based on his CTA chest for T7-T11 involvement he is advised to follow up with his radiation oncologist Dr Sandoval outpatient sooner. He agrees to plan and say will call his raditaion oncologist. [facility] FOLLOW UP Oncology in [address] Jaime Augustine in [address] Robles in 2 weeks
== END 2018-05-29 14:14 | DRG 191 ==
LOC: ERH 22:52 → ERHI 05-26 00:49 → 2NA 05-26 00:49 → ENRESERV 05-26 03:10 → 2NA 05-26 03:38 → ENPENDDIS 05-29 12:42 → ENTRNSPT 05-29 13:57 → EDTRNSPT 05-29 13:59 → EDTRNSPTSTS 05-29 13:59 → CMPTRNSPT 05-29 14:09 → 2NA 05-29 14:14
PROVIDERS: Emergency Medicine; Hospitalist; Student in an Organized Health Care Education/Training Program
DX: J44.1 Chronic obstructive pulmonary disease with (acute) exacerbation (principal); C34.90 Malignant neoplasm of unspecified part of unspecified bronchus or lung; C79.31 Secondary malignant neoplasm of brain; C79.51 Secondary malignant neoplasm of bone; T66.XXXA Radiation sickness, unspecified, initial encounter; R06.02 Shortness of breath; K20.8 Other esophagitis; Z88.1 Allergy status to other antibiotic agents; Z87.891 Personal history of nicotine dependence; R13.10 Dysphagia, unspecified; T48.6X5A Adverse effect of antiasthmatics, initial encounter; Y92.239 Unspecified place in hospital as the place of occurrence of the external cause
CPT/HCPCS: 2NASP; 36415; 36592; 71045; 82436; 87070; 93005; 93010; 93306; 97116-GO; 97161-GP; J0131; J1642; J1650; J2405; J3250; J7042